=== PATIENT | female | born 1980 | race Caucasian/White ===

== ENCOUNTER 2017-07-31 11:00 | Inpatient (IN) | payer OTHER ==
[~2017-07-31 11:00] MED LIST: CITRIC ACID/SODIUM CITRATE 30 ML UNIT-DOSE CUP PO ONE; ELECTROLYTE-148 SOLN 1,000 ML IV SCH
[2017-07-31] MEDS ORDERED: TUBERCULIN PPD 5 TU/0.1ML SYRINGE (IN PATIENT USE ONLY) ID ONE (12:00)
[2017-07-31] MEDS ORDERED: ELECTROLYTE-148 SOLN 1,000 ML IV SCH ×2 (12:00→13:45)
[2017-07-31 12:01] VITALS: BMI 33.6
[2017-07-31] MEDS ORDERED: ONDANSETRON 4 MG/2 ML VIAL IVPUSH PRN (13:20)
[2017-07-31] MEDS ORDERED: morphine SULFATE/Preservative Free 0.5 MG/ML (1cc Syringe) ONE (13:45)
[2017-07-31] MEDS ORDERED: ePHEDrine SULFATE 50 MG/1 ML AMPULE ONE (13:46)
--- NOTE | 2017-07-31 13:48 | HP ---
Past Medical History - Primary Care Physician PCP:: Angus Mcmanus - Admission Chief Complaint: 37yo p1 with pregnany at EGA 40w1d admitted for repeat C. section. 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: Alzheimer's, CVA, Dementia, Migraine, Multiple Sclerosis, Peripheral Neuropathy, Parkinson's, Seizure, Syncope, TIA, Vertigo, Other Cardiovascular: No: AFIB, Aneurysm, Aortic Insufficiency, Aortic Stenosis, CAD, CHF, Deep Vein Thrombosis, HTN, Hyperlipdemia, SC, Mitral Insufficiency, Mitral Stenosis, Murmur, Pulmonary Hypertension, Other Pulmonary: No: Asthma, Bronchitis, Cancer, COPD, O2 Dependent, Pneumonia, Previously Intubated, Pulmonary Embolus, Pulmonary Fibrosis, Sleep Apnea, Other Gastrointestinal: No: Ascites, Cancer, Constipation, Crohn's Disease, Diverticulitis, Diverticulosis, Esophageal Varices, Gastritis, GERD, GI Bleed, Hemorrhoids, Hiatal Hernia, Inflamatory Bowel Disease, Irritable Bowel Disease, Pancreatitis, Peptic Ulcer Disease, Ulcerative Colitis, Other Hepatobiliary: No: Cirrhosis, Cholelithiasis, Cholecystitis, Choledocholithiasis , Hepatitis A, Hepatitis B, Hepatitis C, Other Renal/: No: Renal Failure, Renal Inusuff, BPH, Cancer, Hematuria, Hemodialysis , Neurogenic Bladder, Renal Calculi, UTI, Other Reproductive: Yes: Other (SAB x 5) ...: 7 ...Para: 1 ...Term: 1 (c/s) ...: 0 ...Spon : 5 ...Induced : 0 ...Multiple Gestation: 0 ...LMP: 05/25/16 ... Weeks Gestation by Dates: 39.6 ...EDC by Dates: 08/01/17 ...EDC by Sono: 07/30/17 Heme/Onc: Yes: Hypercoaguable State Infectious Disease: No: AIDS, C-Diff, Herpes Zoster, HIV, MRSA, STD's, Tuberculosis, VREF, Other Psych: No: Addictions, Anxiety, Bipolar, Depression, Panic, Psychosis, Schizophrenia, Other Musculoskeletal: No: Bursitis, Chronic low back pain, Hemiparesis, Hemiplegia, Osteoarthritis, Paraplegia, Other Rheumatology: No: Fibromyalgia, Gout, Lupus, Rheumatoid Arthritis, Sarcoidosis, Vasculitis, Other ENT: No: Allergic Rhinitis, Sinusitis, Other Endocrine: No: Dandre's Disease, [place]'s Disease, Diabetes Insipidus, Diabetes Mellitus, Hyperparathyroidism, Hyperthyroidism, Hypothyroidism, Osteopenia, SIADH, Other Dermatology: No: Basal Cell, Cellulitis, Eczema, Melanoma, Psoriasis, Squamous Cell, Other - Past Surgical History Past Surgical History: Yes: Hx Myomectomy: No Hx Transabdominal Cerclage: No - Smoking History Smoking history: Never smoked Have you smoked in the past 12 months: No Aproximately how many cigarettes per day: 0 If you are a former smoker, when did you quit?: 10 months - Alcohol/Substance Use Hx Alcohol Use: No - Social History Usual Living Arrangement: Yes: With Spouse, With Child ADL: Independent History of Recent Travel: No Home Medications - Allergies Allergies/Adverse Reactions: Allergies Allergy/AdvReac Type Severity Reaction Status Date / Time No Known Allergies Allergy Verified 07/31/17 11:24 - Home Medications Home Medications: Ambulatory Orders Ascorbic Acid [Vitamin C] 500 mg PO DAILY 07/31/17 Ferrous Sulfate [Feosol] 325 mg PO DAILY 07/31/17 Prenat 115/Iron Fum/Folic/Dss [ 19 Tablet] 1 each PO DAILY 07/31/17 Family Disease History - Family Disease History Family History: Unremarkable Review of Systems - Review of Systems Constitutional: reports: No Symptoms Eyes: reports: No Symptoms HENT: reports: No Symptoms Neck: reports: No Symptoms Cardiovascular: reports: No Symptoms Respiratory: reports: No Symptoms Gastrointestinal: reports: No Symptoms Genitourinary: reports: No Symptoms Breasts: reports: No Symptoms Reported Musculoskeletal: reports: No Symptoms Integumentary: reports: No Symptoms Neurological: reports: No Symptoms Endocrine: reports: No Symptoms Hematology/Lymphatic: reports: No Symptoms Psychiatric: reports: No Symptoms Pain Intensity: 0 Physical Exam - Maternity Vital Signs: Vital Signs Temperature 98.0 F 07/31/17 12:43 Pulse Rate 72 07/31/17 12:43 Respiratory Rate 18 07/31/17 12:43 Blood Pressure 125/66 07/31/17 12:43 O2 Sat by Pulse Oximetry (%) Constitutional: Yes: Well Nourished, No Distress, Calm Eyes: Yes: WNL, Conjunctiva Clear HENT: Yes: WNL, Atraumatic, Normocephalic Neck: Yes: WNL, Supple, Trachea Midline Cardiovascular: Yes: WNL, Regular Rate and Rhythm Lungs: Clear to auscultation, Normal air movement Breast(s): Yes: WNL - Abdominal Exam/OB Fundal Height: 40 Number of Fetuses: Single Presentation: Vertex Contractions: No Heart Rate (range): 140 Heart Rate Location: Midline Category: I Accelerations: Non-Uniform Decelerations: None - Vaginal Exam/OB Vaginal Bleediing: No Speculum Exam: No Presentation: Vertex/Position - Physical Exam Musculoskeletal: Yes: WNL Extremities: Yes: WNL Edema: No Integumentary: Yes: WNL Deep Tendon Reflex Grade: Normal +2 ...Motor Strength: WNL Psychiatric: Yes: WNL, Alert, Oriented Hemorrhage Risk Assessment - Risk Factors Medium Risk Factors: Yes: Prior , uterine surgery,or multiple laparotomies High Risk Factors: Yes: None Risk Score: 1 Risk Level: Medium Risk Imaging - Results Ultrasound: Report Reviewed Assessment/Plan 37yo p1 with pregnany at EGA 40w1d admitted for repeat C. section. The decision was made to proceed with delivery by repeat C. section. We discussed the risks and benefits of C/S at length, including but not limited to scarring, pain, bleeding, infection, injury to underlying organs and structures, need for additional surgery to repair/treat any problems or complications, complications/injuries, etc. The pt verbalized her understanding and requested to proceed with surgery. The pt is aware that all surgeries have risks and no guarantees can be provided.
[2017-07-31] MEDS ORDERED: BUPIVACAINE 0.75% IN DEXTROSE/PF 2ML AMPULE NR ONE (13:49)
[2017-07-31] MEDS ORDERED: ceFAZolin SODIUM 1 GM VIAL ONE (13:58)
[2017-07-31] MEDS ORDERED: OXYTOCIN 10 UNITS/ML VIAL ONE ×2 (14:13→14:39)
--- NOTE | 2017-07-31 14:53 | PN ---
Progress Note (short form) - Note Progress Note: Atendede schedule C/S for this 37yrs old mother PNL- Nl delivered - clear fluid, cried soon after swuctioned/ dried cord 3V 9/9 clinically stable - pink well perfused Normocephalic/ AFOF, chest B/L symm, no heart murmur No organomegaly, nl male - B/L hydrocoele Good tone and activity RNBC watch for resp[ distress Encourage Bf/ bonding
[2017-07-31 14:55] LABS: ARTERIAL BLD GAS O2 SATURATION 22.6 % (90-98.9); ARTERIAL BLOOD GAS BASE EXCESS 0.1 meq/l (-2-2); ARTERIAL BLOOD GAS PCO2 57.2 mmHg (35-45); ARTERIAL BLOOD GAS PO2 16.2 mmHg (80-100); ARTERIAL BLOOD GAS pH 7.3 (7.35-7.45)
[2017-07-31 14:58] LABS: VENOUS PH 7.38 (7.32-7.42); VENOUS PO2 25.1 mmHg (28-48)
[2017-07-31] MEDS ORDERED: KETOROLAC TROMETHAMINE 30 MG/1 ML VIAL ONE (15:08)
[2017-07-31] MEDS ORDERED: BENZOCAINE 20% 57 GM BOTTLE TP PRN (15:18)
[2017-07-31] MEDS ORDERED: METHYLERGONOVINE MALEATE 0.2 MG/1 ML AMP IM PRN (15:18)
[2017-07-31] MEDS ORDERED: WITCH HAZEL 50% (TUCKS) 40 PAD/JAR PAD TP PRN (15:18)
[2017-07-31] MEDS ORDERED: BENZOCAINE 28 GM HEMORRHOIDAL OINTMENT TP PRN (15:18)
--- NOTE | 2017-07-31 15:24 | OP ---
Operative Note - Note: Operative Date: 07/31/17 Pre-Operative Diagnosis: at 40w1d. Prior C/S Operation: Repeat C/S Findings: Live baby boy in vtx presentation, no meconium in amniotic fluid, 9/9, wt= 9lb1oz Post-Operative Diagnosis: Same as Pre-op Surgeon: Angus Mcmanus Station Inspector: Philip Martinez Anesthesia: Spinal Specimens Removed: Placenta Estimated Blood Loss (mls): 700 Drains & Tubes with Location: Narvaez cath Drains, Volume Out (mls): 200 Blood Volume Replaced (mls): 0 Fluid Volume Replaced (mls): 1,400 Operative Report Dictated: Yes
[2017-07-31] MEDS ORDERED: OXYTOCIN 20 UNITS in 0.9% NS 20 UNIT/1,000 ML INFUS.BAG IV SCH (15:30)
[2017-07-31] MEDS ORDERED: ACETAMINOPHEN 1000 MG/100 ML VIAL (NON FORMULARY) IVPB ONE (16:24)
[2017-07-31] MEDS ORDERED: OXYTOCIN 20 UNITS in 0.9% NS 20 UNIT/1,000 ML INFUS.BAG IV ONE (16:42)
--- NOTE | 2017-07-31 19:01 | OP ---
DATE OF OPERATION: 07/31/2017 PREOPERATIVE DIAGNOSIS: at estimated gestational age of 40 weeks and 1 day, previous section. POSTOPERATIVE DIAGNOSIS: at estimated gestational age of 40 weeks and 1 day, previous section. Delivered. PROCEDURE: Repeat low transverse via Pfannenstiel skin incision. SURGEON: Angus cMmanus M.D. TAX EXAMINER: Philip Martinez M.D. ANESTHESIOLOGIST: Jeanette Bond D.O. ANESTHESIA: Spinal. COMPLICATIONS: None. ESTIMATED BLOOD LOSS: 700 mL. URINE OUTPUT: 200 mL of clear urine at the end of the procedure. INTRAVENOUS FLUIDS: 1400 mL of crystalloids. PATHOLOGY: Placenta. FINDINGS: Live baby boy in vertex presentation, no meconium in amniotic fluids, Apgars 9 and 9, weight 9 pounds 1 ounce. PROCEDURE: The patient was met preoperatively. Risks, benefits, and alternatives of surgery were discussed in detail. All questions were answered. The patient was brought to the OR with the IV running. She was placed on the surgical table in a sitting position. The spinal anesthesia was achieved without difficulty. The patient was then placed in the supine position with leftward tilt. She was prepped and draped in the usual sterile fashion. A Narvaez catheter was inserted and left to drain to gravity. The timeout procedure was conducted as per standard protocol. A Pfannenstiel skin incision was made with the knife along the prior scar. The incision was carried down to the level of fascia. The fascia was incised in the midline. The incision was extended bilaterally using Ray scissors. The fascia was dissected away from the rectus muscles superiorly and inferiorly using blunt and sharp dissection. The rectus muscles were in the midline sharply. The peritoneum was identified and entered sharply. The peritoneal incision was extended superiorly and inferiorly. The surgeons noted multiple adhesions between the omentum and the anterior abdominal wall as well as the bladder and the uterus. The bladder was carefully dissected away from the lower uterine segment, and the bladder was reflected downwards. The uterus was incised transversely in the lower uterine segment. The uterine incision was extended bilaterally using bandage scissors. The baby was delivered from vertex presentation without complications. The amniotic fluid was noted to be clear. The baby was crying spontaneously and the umbilical cord was clamped and cut. The baby was handed to the waiting collar runner. The placenta was removed manually and without complications. The uterus was cleared of all clots and debris. The uterine incision was repaired using a 0 Biosyn suture with a running and locking stitch. Good hemostasis was noted. The uterine incision was then imbricated using a 0 Biosyn suture, once again good hemostasis and approximation. The operative site was irrigated using copious amounts of normal saline. Once the saline was aspirated, good hemostasis was confirmed. The abdominal peritoneum was then closed using a 2-0 chromic suture. The rectus muscles were approximated using several interrupted 2-0 chromic sutures. The fascia was closed using a 0 Vicryl suture in 2 segments with good hemostasis in approximation. The subcutaneous adipose tissues were approximated to eliminate space. The skin was closed using a subcutaneous stitch of 3-0 Biosyn suture. The patient tolerated procedure well and was transferred to recovery room in stable condition. Daniela [id number]
[2017-07-31] MEDS: IBUPROFEN 800 MG/8 ML IJ IVPB PRN (20:29)
[2017-07-31] MEDS: FERROUS SO4 325 MG TABLET (FP) PO SCH (23:38)
[2017-08-01] MEDS: ACETAMINOPHEN 325 MG TABLET (FP) PO PRN ×4 (04:30→22:33)
[2017-08-01] MEDS: IBUPROFEN 800 MG/8 ML IJ IVPB PRN (08:30)
[2017-08-01 08:42] LABS: BASO % 0.2 % (0-2.0); EOS % 0.9 % (0-4.5); HEMATOCRIT 24.8 % (32.4-45.2); HEMOGLOBIN 8.5 GM/dL (10.7-15.3); LYMPH % 20.6 % (8-40); MCH 31.8 pg (25.7-33.7); MCHC 34.4 g/dl (32.0-36.0); MEAN CELL VOLUME 92.4 fl (80-96); MEAN PLT VOLUME 8.2 fl (7.5-11.1); MONO % 7.3 % (3.8-10.2); PLATELET COUNT 111 K/MM3 (134-434); RBC 2.69 M/mm3 (3.60-5.2); RDW 13.5 % (11.6-15.6)
[2017-08-01] MEDS: ENOXAPARIN NA (PORCINE) 40 MG/0.4 ML DISP.SYRIN SQ SCH (10:00)
[2017-08-01] MEDS: FERROUS SO4 325 MG TABLET (FP) PO SCH ×2 (10:00→21:22)
[2017-08-01] MEDS: PRENATAL VITAMINS W/ FOLIC ACID TABLET (FP) PO SCH (10:00)
[2017-08-01] MEDS ORDERED: PATIENT'S OWN MEDICATION (NON-FORMULARY) (Prenat 115/Iron Fum/Folic/Dss [Prenatal 19 Table PO SCH (10:00)
[2017-08-01] MEDS: oxyCODONE HCL 5 MG TABLET PO PRN ×4 (12:09→22:32)
[2017-08-01] MEDS: SIMETHICONE 80 MG TAB.CHEW (FP) PO PRN ×3 (12:09→21:22)
--- NOTE | 2017-08-01 13:57 | PN ---
Progress Note (short form) - Note Progress Note: Anesthesia postop note, POD#1 S/P under spinal. Pat seen and examined. VSS. Ambulating, tolerting po. No apparent Post anesthesia complications. Signed off.
[2017-08-01] MEDS: IBUPROFEN 600 MG TABLET (FP) PO PRN ×2 (15:01→21:24)
[2017-08-01] MEDS: BISACODYL 10 MG SUPP.RECT RC PRN ×2 (16:13→16:16)
[2017-08-01] MEDS ORDERED: diphenhydrAMINE HCL 25 MG CAPSULE (FP) PO PRN (21:03)
[2017-08-02] MEDS: IBUPROFEN 600 MG TABLET (FP) PO PRN ×4 (08:32→23:33)
[2017-08-02] MEDS: SIMETHICONE 80 MG TAB.CHEW (FP) PO PRN ×4 (08:32→23:27)
[2017-08-02] MEDS: oxyCODONE HCL 5 MG TABLET PO PRN ×6 (08:33→23:32)
[2017-08-02] MEDS: ENOXAPARIN NA (PORCINE) 40 MG/0.4 ML DISP.SYRIN SQ SCH (09:43)
[2017-08-02] MEDS: FERROUS SO4 325 MG TABLET (FP) PO SCH ×2 (09:43→21:46)
[2017-08-02] MEDS: ACETAMINOPHEN 325 MG TABLET (FP) PO PRN ×3 (09:44→23:33)
[2017-08-02] MEDS: LORATADINE 10 MG TABLET PO SCH (10:00)
[2017-08-02] MEDS: PRENATAL VITAMINS W/ FOLIC ACID TABLET (FP) PO SCH (10:47)
--- NOTE | 2017-08-02 18:50 | PN ---
Post Progress Note - Subjective Subjective: Pt w/o complaints Post Day: 2 Type of Delivery: Repeat C/S Vital Signs: Vital Signs Temperature 98.9 F 08/02/17 09:26 Pulse Rate 101 H 08/02/17 09:26 Respiratory Rate 18 08/02/17 09:26 Blood Pressure 121/87 08/02/17 09:26 O2 Sat by Pulse Oximetry (%) 100 07/31/17 16:35 Breast Exam: Yes: Soft Uterus: Yes: Fundus Firm, Non-tender Incision: Yes: Sutures intact Abdomen/GI: Yes: Abdomen soft, Tolerating PO Lochia: Yes: Rubra Lochia, amount: Small Extremities: Yes: Calves non-tender Perineum: Yes: Intact Activity: Ambulating - Labs Labs: CBC WBC 6.0 K/mm3 (4.0-10.0) 08/01/17 08:00 RBC 2.69 M/mm3 (3.60-5.2) L D 08/01/17 08:00 Hgb 8.5 GM/dL (10.7-15.3) L D 08/01/17 08:00 Hct 24.8 % (32.4-45.2) L D 08/01/17 08:00 MCV 92.4 fl (80-96) 08/01/17 08:00 MCH 31.8 pg (25.7-33.7) 08/01/17 08:00 MCHC 34.4 g/dl (32.0-36.0) 08/01/17 08:00 RDW 13.5 % (11.6-15.6) 08/01/17 08:00 Plt Count 111 K/MM3 (134-434) L D 08/01/17 08:00 MPV 8.2 fl (7.5-11.1) 08/01/17 08:00 Neutrophils % 71.0 % (42.8-82.8) 08/01/17 08:00 Lymphocytes % 20.6 % (8-40) 08/01/17 08:00 Monocytes % 7.3 % (3.8-10.2) 08/01/17 08:00 Eosinophils % 0.9 % (0-4.5) 08/01/17 08:00 Basophils % 0.2 % (0-2.0) 08/01/17 08:00 Assessment/Plan 37yo P2 s/p repeat LT C/S, doing well stable, afebrile. The pt is asymptomatic for s/sxs of anemia. Decreased plt noted. Plan to repeat tomorrow care instructions reviewed. Continue routine postop care. Ambulation encouraged.
--- NOTE | 2017-08-02 19:00 | DS ---
Physical Exam-MONUMENTAL STONEMASON Vital Signs: Vital Signs Temperature 98.9 F 08/02/17 09:26 Pulse Rate 101 H 08/02/17 09:26 Respiratory Rate 18 08/02/17 09:26 Blood Pressure 121/87 08/02/17 09:26 O2 Sat by Pulse Oximetry (%) 100 07/31/17 16:35 Constitutional: Yes: Well Nourished, No Distress, Calm Eyes: Yes: WNL, Conjunctiva Clear, EOM Intact HENT: Yes: WNL, Atraumatic, Normocephalic Neck: Yes: WNL, Supple, Trachea Midline Cardiovascular: Yes: WNL, Regular Rate and Rhythm Respiratory: Yes: WNL, Regular, CTA Bilaterally Gastrointestinal: Yes: WNL, Normal Bowel Sounds, Soft ...Rectal Exam: Yes: Deferred Renal/: Yes: WNL External Genitalia: Yes: Normal Internal Exam Deferred: Yes ....Post : Yes: Uterus firm, Uterus non-tender, Slight lochia rubra Breast(s): Yes: WNL Musculoskeletal: Yes: WNL Extremities: Yes: WNL Edema: No Integumentary: Yes: WNL Wound/Incision: Yes: Clean/Dry, Well Approximated, Sutures Intact, Steri Strips Neurological: Yes: WNL, Alert, Oriented ...Motor Strength: WNL Psychiatric: Yes: WNL, Alert, Oriented Labs: CBC, BMP 08/01/17 08:00 Delivery - Delivery Type of Anesthesia: Spinal Episiotomy/Laceration: None EBL (cc): 700 Delivery, Single - Stages of Labor Date of Delivery: 07/31/17 Time of Delivery: 14:22 Time Placenta Delivered: 14:23 Placenta: Yes: Manual Removal, Normal Configuration - Condition of Infant Juice Standardizer/Bottom Sander Present: Yes Name: Que Kelly Infant Gender: Male Weight: 4.111 kg Position: Left, OT Total Hours ROM (Hrs/Mins): 0/2 - 1 Minute Total Score: 9 5 Minutes Total Score: 9 - Feeding Plan Initial Plan: Exclusive throughout hospitalization Discharge Summary Reason For Visit: REPEAT C SECTION Post term , AMA, maternal obesity, prior C/S, Anemia due acute blood loss Procedures: Principal: Amy LTC/S Hospital Course: Normal recovery Condition: Good - Instructions Diet, Activity, Other Instructions: Physical activity Resume your normal everyday activity as tolerated no heavy lifting or exercise until seen by your surgeon. You may walk unlimited caryl of and climb stairs. You may resume driving the car when you feel safe and comfortable behind the wheel. No sexual activity as instructed. Wound care If you have a bandage, leave it on, and keep dry for 48-72 hours. After that time discard the outer bandage. If they are tapes on the skin under the out of bandage leave them in place. They will peel off in the next 7 to 10 days. Do Not Peel them off. You may shower the day after surgery. If there are tapes present on the skin, you may shower over them. Diet There are no dietary restrictions. Eat healthy, high-fiber foods. Drink 6 to 8 glasses of liquid each day. This will assist in keeping your bowels are regular. Pain management You may take Tylenol or acetaminophen or Ibuprofen (for example, Motrin, Advil etc.) from my pain prescription medication is ordered should be taken as prescribed for moderate to severe pain. Call MD for any of the following: Severe pain not relieved by medication Fever of 101 or higher Excessive bleeding or drainage on dressing Inability to urinate Referrals: Angus Mcmanus MD [Staff Physician] - Disposition: HOME - Home Medications Comprehensive Discharge Medication List: Ambulatory Orders Ascorbic Acid [Vitamin C] 500 mg PO DAILY 07/31/17 Ferrous Sulfate [Feosol] 325 mg PO DAILY 07/31/17 Prenat 115/Iron Fum/Folic/Dss [ 19 Tablet] 1 each PO DAILY 07/31/17 Oxycodone HCl/Acetaminophen [Percocet 5-325 mg Tablet -] 1 - 2 tab PO Q6H PRN # 30 tab MDD 8 08/02/17
[2017-08-02] MEDS: SENNOSIDES/DOCUSATE COMBO (SENNA PLUS) TABLET (UD) PO PRN (21:47)
[2017-08-03 07:06] LABS: BASO % 0.2 % (0-2.0); EOS % 2.5 % (0-4.5); HEMATOCRIT 23.4 % (32.4-45.2); HEMOGLOBIN 8.3 GM/dL (10.7-15.3); LYMPH % 30.2 % (8-40); MCH 32.5 pg (25.7-33.7); MCHC 35.6 g/dl (32.0-36.0); MEAN CELL VOLUME 91.4 fl (80-96); MEAN PLT VOLUME 8.5 fl (7.5-11.1); MONO % 7.1 % (3.8-10.2); PLATELET COUNT 148 K/MM3 (134-434); RBC 2.56 M/mm3 (3.60-5.2); RDW 13.3 % (11.6-15.6); WHITE BLOOD COUNT 5.1 K/mm3 (4.0-10.0)
--- NOTE | 2017-08-03 07:58 | PN ---
Post Progress Note - Subjective Subjective: No complaints, (+) flatus and BM, no nausea/vomiting. Post Day: 3 Type of Delivery: Repeat C/S Vital Signs: Vital Signs Temperature 97.8 F 08/02/17 22:00 Pulse Rate 87 08/02/17 22:00 Respiratory Rate 18 08/02/17 22:00 Blood Pressure 136/76 08/02/17 22:00 O2 Sat by Pulse Oximetry (%) 100 07/31/17 16:35 Breast Exam: Yes: Soft Uterus: Yes: Fundus Firm, Fundus below umbilicus, Non-tender Incision: Yes: Sutures intact Abdomen/GI: Yes: Abdomen soft, Tolerating PO Lochia: Yes: Rubra Lochia, amount: Small Extremities: Yes: Calves non-tender Perineum: Yes: Intact Activity: Ambulating - Labs Labs: CBC WBC 5.1 K/mm3 (4.0-10.0) 08/03/17 06:35 RBC 2.56 M/mm3 (3.60-5.2) L 08/03/17 06:35 Hgb 8.3 GM/dL (10.7-15.3) L 08/03/17 06:35 Hct 23.4 % (32.4-45.2) L 08/03/17 06:35 MCV 91.4 fl (80-96) 08/03/17 06:35 MCH 32.5 pg (25.7-33.7) 08/03/17 06:35 MCHC 35.6 g/dl (32.0-36.0) 08/03/17 06:35 RDW 13.3 % (11.6-15.6) 08/03/17 06:35 Plt Count 148 K/MM3 (134-434) D 08/03/17 06:35 MPV 8.5 fl (7.5-11.1) 08/03/17 06:35 Neutrophils % 60.0 % (42.8-82.8) 08/03/17 06:35 Lymphocytes % 30.2 % (8-40) D 08/03/17 06:35 Monocytes % 7.1 % (3.8-10.2) 08/03/17 06:35 Eosinophils % 2.5 % (0-4.5) D 08/03/17 06:35 Basophils % 0.2 % (0-2.0) 08/03/17 06:35 Assessment/Plan 37yo P2 s/p repeat LT C/S, doing well stable, afebrile. The pt is asymptomatic for s/sxs of anemia. Hct low butstable. Rpt CBC in am. Platelet count improved. care instructions reviewed. Continue routine postop care. Ambulation encouraged.
[2017-08-03] MEDS: oxyCODONE HCL 5 MG TABLET PO PRN ×3 (08:31→21:58)
[2017-08-03] MEDS: IBUPROFEN 600 MG TABLET (FP) PO PRN ×2 (08:32→14:29)
[2017-08-03] MEDS: ACETAMINOPHEN 325 MG TABLET (FP) PO PRN ×3 (08:33→21:53)
[2017-08-03] MEDS: SIMETHICONE 80 MG TAB.CHEW (FP) PO PRN ×3 (08:34→21:55)
[2017-08-03] MEDS: ENOXAPARIN NA (PORCINE) 40 MG/0.4 ML DISP.SYRIN SQ SCH (09:26)
[2017-08-03] MEDS: LORATADINE 10 MG TABLET PO SCH (09:26)
[2017-08-03] MEDS: PRENATAL VITAMINS W/ FOLIC ACID TABLET (FP) PO SCH (09:26)
[2017-08-03] MEDS: FERROUS SO4 325 MG TABLET (FP) PO SCH ×2 (09:26→21:55)
[2017-08-03 18:08] VITALS: TEMP 98.4
[2017-08-03] MEDS: SENNOSIDES/DOCUSATE COMBO (SENNA PLUS) TABLET (UD) PO PRN (21:57)
[2017-08-04] MEDS: IBUPROFEN 600 MG TABLET (FP) PO PRN ×2 (03:35→09:46)
[2017-08-04] MEDS: SIMETHICONE 80 MG TAB.CHEW (FP) PO PRN ×2 (03:35→09:48)
[2017-08-04] MEDS: ACETAMINOPHEN 325 MG TABLET (FP) PO PRN ×2 (03:39→09:47)
[2017-08-04 08:56] LABS: BASO % 0.2 % (0-2.0); EOS % 2.9 % (0-4.5); HEMOGLOBIN 7.5 GM/dL (10.7-15.3); LYMPH % 28.8 % (8-40); MCH 31.3 pg (25.7-33.7); MCHC 34.1 g/dl (32.0-36.0); MEAN CELL VOLUME 91.9 fl (80-96); MEAN PLT VOLUME 8.4 fl (7.5-11.1); MONO % 8.9 % (3.8-10.2); NEUT % 59.2 % (42.8-82.8); PLATELET COUNT 158 K/MM3 (134-434); RDW 13.2 % (11.6-15.6)
[2017-08-04] MEDS: FERROUS SO4 325 MG TABLET (FP) PO SCH (09:44)
[2017-08-04] MEDS: PRENATAL VITAMINS W/ FOLIC ACID TABLET (FP) PO SCH (09:44)
[2017-08-04] MEDS: LORATADINE 10 MG TABLET PO SCH (09:44)
[2017-08-04] MEDS: ENOXAPARIN NA (PORCINE) 40 MG/0.4 ML DISP.SYRIN SQ SCH (09:44)
[2017-08-04 09:55] VITALS: BP 132/73; PULSE 81
--- NOTE | 2017-08-10 12:24 | PATH ---
Surgical Pathology Report Patient Name: BECKI YORK [facility]. Rec. #: [id number] /Age/Gender: 1980 (Age: 37) / F Account: [id number] Location: [facility] OBS/STANDARDS ANALYST Taken: 07/31/2017 Received: 08/03/2017 Reported: 08/10/2017 Physicians: Angus Mcmanus M.D. Specimen(s) Received PLACENTA Clinical History , advanced maternal age, SPAB x5 Final Diagnosis PLACENTA: THIRD TRIMESTER PLACENTA. TRIVASCULAR CORD. MEMBRANES, NO DIAGNOSTIC ABNORMALITIES. Electronically Signed Lynne Beavers M.D. Gross Description The specimen is received fresh labeled placenta and is a 580 gram, 25.5 x 17.0 x 2.6 cm. placenta with attached membranes and umbilical cord. The attached membranes are goodman, translucent with focal opacities and insert marginally. The umbilical cord measures 15 cm. in length and averages 1.6 cm. in diameter. The cord inserts centrally. No true knots or strictures are identified. Cut surface of the umbilical cord reveals 3 vessels. The surface is moctezuma-blue with minimal fibrin deposition and appropriate caliber vessels. The maternal surface is red-brown with focal defects. Sectioning reveals red-brown, spongy parenchyma. No lesions are identified. Sustain Engineer sections are submitted in three cassettes as follows: 1- membrane rolls and umbilical cord; 2-3- full thickness sections of placenta. /08/06/2017 saudi08/06/2017
== END 2017-08-04 11:30 | disposition home or self-care (01) | DRG 540 ==
LOC: JLDR 11:00 → J3W 17:00
PROVIDERS: ADMIT Obstetrics & Gynecology; ATTEND Obstetrics & Gynecology
PROC: 10D00Z1 Extraction of Products of Conception, Low, Open Approach (ICD-10-PCS; principal; 2017-07-31)
DX: O34.211 Maternal care for low transverse scar from previous cesarean delivery (principal); O99.02 Anemia complicating childbirth; D62 Acute posthemorrhagic anemia; O99.214 Obesity complicating childbirth; E66.9 Obesity, unspecified; Z68.33 Body mass index [BMI] 33.0-33.9, adult; Z3A.40 40 weeks gestation of pregnancy; Z37.0 Single live birth
CPT/HCPCS: 36415; 36600; 82803; 85025; 88307-TC